=== PATIENT | female | born 1995 | race Two or more races ===

== ENCOUNTER 2022-08-08 13:58 | Emergency (ER) | payer OTHER ==
[~2022-08-08] VITALS: Ht 160 cm; Wt 69.4 kg
[2022-08-08] MEDS ORDERED: DEPAKOTE ER250 MG PO (14:39)
[2022-08-08] MEDS ORDERED: PROZAC10 M1 PO (14:39)
[2022-08-08] MEDS ORDERED: RESTORIL15 M1 PO (14:40)
== END 2022-08-08 20:44 | disposition home or self-care (01) ==
LOC: ER 13:58
DX: M54.59 Other low back pain (principal)

== ENCOUNTER 2022-11-23 16:59 | Emergency (ER) | payer OTHER ==
[~2022-11-23] VITALS: Ht 160 cm; Wt 68.0 kg
[~2022-11-23 16:59] MED LIST: DEPAKOTE ER250 MG PO; PROZAC10 M1 PO; RESTORIL15 M1 PO
== END 2022-11-23 21:48 | disposition home or self-care (01) ==
LOC: ER 16:59
DX: M51.27 Other intervertebral disc displacement, lumbosacral region (principal)

== ENCOUNTER 2023-01-17 19:46 | Emergency (ER) | payer OTHER ==
[~2023-01-17] VITALS: Ht 160 cm; Wt 66.2 kg
== END 2023-01-17 22:49 | disposition home or self-care (01) ==
LOC: ER 19:46
DX: J00 Acute nasopharyngitis [common cold] (principal); Z20.822 Contact with and (suspected) exposure to COVID-19

== ENCOUNTER 2023-05-19 13:28 | Emergency (ER) | payer OTHER ==
[~2023-05-19] VITALS: Ht 160 cm; Wt 66.7 kg
== END 2023-05-19 16:18 | disposition home or self-care (01) ==
LOC: ER 13:28
DX: M62.830 Muscle spasm of back (principal)